=== PATIENT | female | born 1980 | race Caucasian/White ===

== ENCOUNTER → 2018-10-25 | Outpatient (CLI) | payer OTHER | END | disposition home or self-care (01) | LOC: CT 10-20 09:00 | DX: R51 Headache (principal) ==

== ENCOUNTER → 2018-11-10 | Outpatient (CLI) | payer OTHER | END | disposition home or self-care (01) | LOC: MAMMO 13:00 | DX: Z12.31 Encounter for screening mammogram for malignant neoplasm of breast (principal) ==

== ENCOUNTER → 2018-12-15 | Outpatient (CLI) | payer SELFPAY ==
[2018-12-16 05:05] LABS: HEPATITIS B SURFACE AB 006395 Reactive (.)
[2018-12-16 14:09] LABS: RUBEOLA AB IGG 096560 >300.0 AU/mL (Immune >29.9); VARICELLA-ZOSTER IGG 096206 1210 index (Immune >165)
== END | disposition home or self-care (01) ==
LOC: LAB 14:44
PROVIDERS: Internal Medicine
DX: Z23 Encounter for immunization (principal)

== ENCOUNTER → 2021-12-02 | Outpatient (CLI) | payer BC ==
[2021-12-02 09:31] LABS: BASO # 0.1 10*3/uL (0.0-0.1); BASO % 0.6 % (0.0-1.0); EOS # 0.2 10*3/uL (0.0-0.4); EOS % 2.7 % (1.0-4.0); HEMATOCRIT 40.6 % (37.0-47.0); LYMPH # 2.5 10*3/uL (1.3-4.4); LYMPH % 27.8 % (27.0-41.0); MEAN CELL VOLUME 85.3 fl (81.0-99.0); MEAN CORPUSCULAR HGB 27.3 pg (27.0-31.0); MEAN PLATELET VOLUME 9.6 fl (9.6-12.3); MONO # 0.6 10*3/uL (0.1-1.0); MONO % 6.6 % (3.0-9.0); NEUT # 5.5 10*3/uL (2.3-7.9); PLATELET COUNT AUTOMATED 393 10*3/uL (130-400); RED BLOOD COUNT 4.76 10*6/uL (4.10-5.10); RED CELL DISTRI WIDTH 14.2 % (0-14.5); WHITE BLOOD COUNT 8.9 10*3/uL (4.8-10.8)
[2021-12-02 10:16] LABS: BUN 8 mg/dl (7-24); CHLORIDE 106 mmol/L (98-107); CHOLESTEROL 172 mg/dL (<200); CREATININE 0.72 mg/dL (0.55-1.02); POTASSIUM 3.8 mmol/L (3.5-5.1); SGOT/AST 18 IU/L (3-35); SGPT/ALT 24 U/L (12-78); SODIUM 139 mmol/L (136-145); TOTAL PROTEIN 7.8 gm/dL (6.4-8.2); TRIGLYCERIDES 137 mg/dl (<150)
[2021-12-02 10:21] LABS: ALKALINE PHOSPHATASE 78 U/L (45-117); LDL CHOLESTEROL 100 mg/dL (9-159); T3 UPTAKE 32 % (31-39)
[2021-12-02 10:22] LABS: VITAMIN D, 25-HYDROXY 25.4 ng/mL (30-100)
[2021-12-03 08:08] LABS: RHEUMATOID FACTOR <10.0 IU/mL (<14.0)
[2021-12-03 12:07] LABS: ANTI-DSDNA ANTIBODIES <1 IU/mL (0-9)
== END | disposition home or self-care (01) ==
LOC: LAB 09:04
PROVIDERS: ATTEND Internal Medicine
DX: Z00.01 Encounter for general adult medical examination with abnormal findings (principal); I10 Essential (primary) hypertension; E55.9 Vitamin D deficiency, unspecified; Z79.891 Long term (current) use of opiate analgesic; M15.0 Primary generalized (osteo)arthritis; M17.0 Bilateral primary osteoarthritis of knee; Z13.29 Encounter for screening for other suspected endocrine disorder; Z13.89 Encounter for screening for other disorder